=== PATIENT | female | born 1960 | race African-American/Black ===

== ENCOUNTER 2023-11-15 10:21 | Emergency (ER) | payer MEDICAID ==
[~2023-11-15] VITALS: Ht 157.5 cm; Wt 83.6 kg
[~2023-11-15 10:21] MED LIST: AMOX250C4 PO; LOVA20TA73 PO; TYL2 PO
[2023-11-15 10:31] VITALS: TEMP 97.5
[2023-11-15] MEDS: KETOROLAC TROMETHAMINE 60 MG/2 ML VIAL IM ONE (11:29)
[2023-11-15] MEDS: CYCLOBENZAPRINE HCL 10 MG TABLET PO ONE (11:29)
[2023-11-15] MEDS: ACETAMINOPHEN 500 MG TABLET PO ONE (11:29)
[2023-11-15 11:57] VITALS: BP 141/72; PULSE 56; RESP 16; O2SAT 99
[2023-11-15] MEDS ORDERED: OMEP20 PO (13:17)
[2023-11-15] MEDS ORDERED: CYCL-448 PO (13:17)
[2023-11-15] MEDS ORDERED: IBUP-1493 PO (13:17)
== END 2023-11-15 14:17 | disposition home or self-care (01) ==
LOC: EMS 10:25
DX: S39.012A Strain of muscle, fascia and tendon of lower back, initial encounter (principal); M54.41 Lumbago with sciatica, right side; I10 Essential (primary) hypertension; G89.29 Other chronic pain; Z90.710 Acquired absence of both cervix and uterus; Z98.51 Tubal ligation status; X58.XXXA Exposure to other specified factors, initial encounter; Y93.89 Activity, other specified; Y92.89 Other specified places as the place of occurrence of the external cause; Y99.8 Other external cause status
CPT/HCPCS: 99284; 72100; 72170; 96372; J1885